=== PATIENT | female | born 2000 | race African-American/Black ===

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

== ENCOUNTER 2020-02-01 12:49 | Emergency (ER) | payer BC, OTHER ==
[2020-02-01 13:13] LABS: Bilirubin Negative (Negative); Blood, Urine Negative (Negative); Clarity Clear (Clear); Glucose, Urine (Dipstick) Normal (Negative); Ketone, Urine Negative (Negative); Leukocyte Negative Leu/uL (Negative); Nitrite Negative (Negative); Protein, Urine (Dipstick) Negative (Neg-Trace); Specific Gravity, Urine 1.008 (1.002-1.036); Urobilinogen Normal mg/dL (Less than 2); pH, Urine 6.5 (5.0-9.0)
[2020-02-01 13:15] LABS: Pregnancy Test - Urine (BHCG) POSITIVE (Negative); Pregu Control Background? CLEAR/WHITE (CLR/WHITE); Pregu Control Bar Appear? YES (CONTROL BAR); Specific Gravity 1.008 (1.002-1.036)
[2020-02-01 14:40] LABS: #Eosinphils 0.2 thou/uL (0.0-0.7); #Lymphocytes 1.2 thou/uL (1.20-3.40); #Monocytes 0.8 thou/uL (0.11-0.59); #Neutrophils 3.3 thou/uL (1.40-6.50); %Basophils 0.8 % (0.0-1.0); %Lymphocytes 21.9 % (28.0-48.0); %Monocytes 14.8 % (0.0-4.0); %Neutrophils 58.4 % (31.0-61.0); Hemoglobin 11.3 g/dL (12.0-16.0); Mean Corpuscular HGB CONC 32.6 g/dL (32.0-36.0); Mean Corpuscular Hemoglobin 27.3 pg (25.0-35.0); Mean Corpuscular Volume 83.8 fL (78.0-98.0); Platelet Count 237 thou/uL (130-400); RBC Distribution Width 15.6 % (11.5-14.5); Red Blood Cell (RBC) Count 4.13 mill/uL (4.00-5.20); White Blood Cell (WBC) Count 5.6 thou/uL (4.8-10.8)
--- NOTE | 2020-02-01 15:24 | ULT ---
PELVIC ULTRASOUND: 02/01/20 Transabdominal and endovaginal ultrasound of the pelvis performed. INDICATIONS: Pelvic pain. Positive test. FINDINGS: There is evidence of a tiny gestational sac seen in the endometrial cavity. The size of this gestatio nal sac would indicate a 5 week, 2 day gestational age. There is no evidence of yolk sac. There is no evidence of pole. The ovaries are identified and appear unremarkable. Color flow with spectral analysis is seen in the right ovary. Flow is more difficult to assess in the left ovary due to position of the ovary. Tiny am ount of free fluid is noted. IMPRESSION: There is evidence of a tiny yolk sac in endometrial cavity. No evidence of pole or yolk sac. T herefore, a pseudogestational sac is not excluded and ectopic is not excluded. Recommend fo llow-up with serial HCG levels to confirm normal intrauterine . POS: [facility]
== END 2020-02-01 16:07 | disposition home or self-care (01) ==
LOC: ERS 12:49
DX: O99.891 Other specified diseases and conditions complicating pregnancy (principal); R10.30 Lower abdominal pain, unspecified; O99.341 Other mental disorders complicating pregnancy, first trimester; F32.9 Major depressive disorder, single episode, unspecified; Z3A.01 Less than 8 weeks gestation of pregnancy
CPT/HCPCS: 36415; 76856; 81003; 81025; 84702; 85025; 86900; 86901

== ENCOUNTER 2020-02-02 22:59 | Emergency (ER) | payer BC ==
[2020-02-02 23:56] LABS: Bilirubin Negative (Negative); Blood, Urine Negative (Negative); Clarity Clear (Clear); Glucose, Urine (Dipstick) Normal (Negative); Ketone, Urine Negative (Negative); Leukocyte Negative Leu/uL (Negative); Nitrite Negative (Negative); Protein, Urine (Dipstick) Negative (Neg-Trace); Specific Gravity, Urine 1.019 (1.002-1.036); Urobilinogen Normal mg/dL (Less than 2)
[2020-02-03 00:10] LABS: Pregnancy Test - Urine (BHCG) POSITIVE (Negative); Pregu Control Background? CLEAR/WHITE (CLR/WHITE); Pregu Control Bar Appear? YES (CONTROL BAR); Specific Gravity 1.019 (1.002-1.036)
== END 2020-02-03 00:09 | disposition home or self-care (01) ==
LOC: ERS 22:59
DX: O99.891 Other specified diseases and conditions complicating pregnancy (principal); O99.341 Other mental disorders complicating pregnancy, first trimester; F32.9 Major depressive disorder, single episode, unspecified; Z3A.01 Less than 8 weeks gestation of pregnancy
CPT/HCPCS: 81003; 81025; 99281

== ENCOUNTER 2021-09-19 18:24 | Emergency (ER) | payer BC, OTHER, SELFPAY ==
[2021-09-19 19:48] LABS: BHCG - Serum POSITIVE (NEGATIVE); Pregs Control Background? CLEAR/WHITE (CLR/WHITE); Pregs Control Bar Appear? YES (CONTROL BAR)
[2021-09-19 20:11] LABS: Bilirubin Negative (Negative); Blood, Urine Negative (Negative); Clarity Clear (Clear); Glucose, Urine (Dipstick) Normal (Negative); Ketone, Urine Negative (Negative); Leukocyte Negative Leu/uL (Negative); Nitrite Negative (Negative); Protein, Urine (Dipstick) Negative (Neg-Trace); Specific Gravity, Urine 1.027 (1.002-1.036); Urobilinogen Normal mg/dL (Less than 2)
== END 2021-09-19 21:03 | disposition home or self-care (01) ==
LOC: ERS 18:24
DX: O99.891 Other specified diseases and conditions complicating pregnancy (principal); R10.30 Lower abdominal pain, unspecified; Z3A.01 Less than 8 weeks gestation of pregnancy
CPT/HCPCS: 36415; 81003; 84702; 84703; 99284